=== PATIENT | female | born 1975 | race Caucasian/White ===

== ENCOUNTER 2025-04-03 19:02 | Outpatient (CLI) | payer BC, SELFPAY | END 2025-04-03 19:03 | disposition home or self-care (01) | LOC: LKVREF 19:07 | PROVIDERS: Visit Provider Family Medicine | DX: E11.9 Type 2 diabetes mellitus without complications (principal) | CPT/HCPCS: 80048 ==

== ENCOUNTER 2025-08-15 16:38 | Outpatient (CLI) | payer BC, SELFPAY ==
--- NOTE | 2025-08-15 16:45 | CRLHL7_ITS ---
For Patients: As a result of the Century Cures Act, medical imaging exams and procedure reports are released immediately into your electronic medical record. You may view this report before your referring provider. If you have questions, please contact your health care provider. INDICATION: Asymptomatic varicose veins of bilateral lower extremities COMPARISON: None. TECHNIQUE: A compression venous ultrasound exam was performed of the right lower extremity using obando-scale imaging, color Doppler and spectral Doppler analysis. FINDINGS: Sonographic imaging of the right lower extremity demonstrates normal compressibility and color Doppler venous blood flow within the common femoral vein and deep femoral vein. Within the thigh, the femoral vein is patent and compressible. At a lower level, the popliteal and posterior tibial veins also show normal compressibility and color Doppler venous blood flow. Limited imaging of the contralateral groin demonstrates a normal spectral waveform and color Doppler venous blood flow within the left common femoral vein. Postprocedural changes of right GSV ablation. IMPRESSION: No evidence of deep vein thrombosis within the right lower extremity. Dictated by Edgard Emerson MD @ 08/16/2025 7:44:24 AM (Electronically Signed)
== END 2025-08-15 16:39 | disposition home or self-care (01) ==
LOC: US 16:39
PROVIDERS: PCP Family Medicine; Visit Provider Family Medicine
DX: I83.90 Asymptomatic varicose veins of unspecified lower extremity (principal); Z98.890 Other specified postprocedural states
CPT/HCPCS: 93971